=== PATIENT | female | born 1985 | race Caucasian/White ===

== ENCOUNTER → 2024-04-17 15:41 | Outpatient (REF) | payer BC, SELFPAY | LOC: HWRCS 15:41 | PROVIDERS: ATTENDING PHYSICIAN Physician Assistant | DX: R94.31 Abnormal electrocardiogram [ECG] [EKG] (principal); F90.2 Attention-deficit hyperactivity disorder, combined type; I10 Essential (primary) hypertension | CPT/HCPCS: 93306 ==

== ENCOUNTER → 2024-05-01 15:00 | Outpatient (REF) | payer OTHER, SELFPAY ==
[2024-05-07 06:40] LABS: HPV, High Risk Not Detected; HPV, High Risk Source Anal
== END ==
LOC: CLAB 15:00
PROVIDERS: ATTENDING PHYSICIAN Surgery
DX: T74.21XA Adult sexual abuse, confirmed, initial encounter (principal)
CPT/HCPCS: 87624; 88112

== ENCOUNTER → 2024-05-15 12:00 | Outpatient (REF) | payer OTHER, SELFPAY | LOC: DHSLP 12:00 | PROVIDERS: ATTENDING PHYSICIAN Physician Assistant | DX: G47.33 Obstructive sleep apnea (adult) (pediatric) (principal) | CPT/HCPCS: 95800 ==